=== PATIENT | female | born 1955 | race Caucasian/White ===

== ENCOUNTER 2020-07-23 11:10 | Inpatient (IN) | payer MEDICAID, SELFPAY ==
[~2020-07-23] VITALS: Ht 167.6 cm; Wt 125.6 kg
[2020-07-23] MEDS: LACTATED RINGERS 1,000 ML IV SCH ×2 (02:15→21:05)
[2020-07-23 11:33] VITALS: BP 176/102
--- NOTE | 2020-07-23 11:39 | NUR ---
PT C/O RLQ ADBOMINAL PAIN RADIATING TO RIGHT SUPRAPUBIC AREA FOR 4 DAYS WORSENS YESTERDAY. DENIES N/V, FEVER, DIARRHEA, DYSURIA. STATES DECREASED APPETITE. TRIED PEPTOBISMOL NO RELIEF. DENIES CP AT THIS TIME BUT REPORTS SHE HAD ONE EPISODE OF COUGH THIS MORNING THAT MADE HER CHEST HURT AND SOB. PT PRESENTS WITHOUT DIAPHORESIS OR RESPIRATORY DISTRESS. SKIN IS PINK/WARM/DRY; AAOX4 WITH EVEN AND STEADY GAIT; LUNGS CLEAR BL; HR EVEN AND REGULAR; PATIENT STATES PAIN OF 7/10 AT THIS TIME; VSS; PATIENT POSITIONED FOR COMFORT; HOB ELEVATED; BEDRAILS UP X1; BED DOWN. ER MD MADE AWARE OF PT STATUS.
[2020-07-23] MEDS ORDERED: NACL 0.9% 1,000 ML IV ONE ×2 (12:21→14:05)
[2020-07-23] MEDS ORDERED: KETOROLAC 30 MG/ML VIAL IVP ONE (12:25)
[2020-07-23] MEDS ORDERED: ONDANSETRON 4 MG/2 ML VIAL IVP ONE (12:25)
[2020-07-23] MEDS ORDERED: MORPHINE SULFATE 4 MG/ML SYR IVP ONE (12:25)
[2020-07-23 12:41] LABS: BASOPHILS # (AUTO) 0.1 K/uL (0.00-0.22); BASOPHILS % (AUTO) 0.8 % (0.0-2.0); EOSINOPHILS # (AUTO) 0.1 K/uL (0-0.4); EOSINOPHILS % (AUTO) 1.3 % (0.0-4.0); HEMATOCRIT 35.8 % (36-48); HEMOGLOBIN 11.3 g/dL (12.0-16.0); LYMPHOCYTES # (AUTO) 2.6 K/uL (2.5-16.5); LYMPHOCYTES % (AUTO) 25.8 % (20.5-51.1); MEAN CORPUSCULAR HEMOGLOBIN 26 pg (27-31); MEAN CORPUSCULAR HGB CONC 32 g/dL (33-37); MONOCYTES # (AUTO) 1.3 K/uL (0.8-1.0); MONOCYTES % (AUTO) 13.2 % (1.7-9.3); NEUTROPHILS % (AUTO) 58.9 % (42.2-75.2); PLATELET COUNT (AUTO) 493 K/uL (140-450); RED BLOOD CELL COUNT(AUTO) 4.37 MIL/uL (4.20-5.40); RED CELL DISTRIBUTION WIDTH 15.6 % (11.6-13.7); WHITE BLOOD COUNT (AUTO) 10.2 K/uL (4.8-10.8)
--- NOTE | 2020-07-23 12:46 | NUR ---
PT HAS BEEN TAKING TO CT SCAN VIA ASSISTED BY CLOTHING MANAGER.
[2020-07-23 12:58] LABS: ALBUMIN 2.9 g/dL (3.4-5.0); ANION GAP 15.5 (8-16); CARBON DIOXIDE 26.3 mmol/L (21-32); POTASSIUM 3.8 mmol/L (3.5-5.1); TOTAL BILIRUBIN 0.5 mg/dL (0.0-1.0)
--- NOTE | 2020-07-23 13:00 | NUR ---
PT HAS BEEN TAKEN BACK FROM CT SCAN VIA WC.
[2020-07-23] MEDS ORDERED: metroNIDAZOLE 500 MG/NS PREMIX 100 ML IV ONE (14:05)
[2020-07-23] MEDS ORDERED: PIPERACILLIN/TAZOBACTAM 3.375 GM in DEXTROSE 5% 50 ML IV ONE (14:05)
[2020-07-23] MEDS ORDERED: LACTATED RINGERS 1,000 ML IV ONE (14:25)
[2020-07-23] MEDS ORDERED: NACL 0.9% 1,000 ML IV SCH (14:36)
[2020-07-23] MEDS ORDERED: LORazepam 2 MG/ML VIAL IM/IVP PRN (14:40)
[2020-07-23] MEDS ORDERED: POTASSIUM CHLORIDE 10 MEQ TABER PO PRN (14:40)
[2020-07-23] MEDS ORDERED: DOCUSATE SODIUM 100 MG GELCAP PO PRN (14:40)
[2020-07-23] MEDS ORDERED: DEXTROSE 50% 50 ML SYR IVP PRN (14:40)
[2020-07-23] MEDS ORDERED: MAG SULF 2000 MG/WATER PREMIX 50 ML IV PRN (14:40)
[2020-07-23] MEDS ORDERED: INSULIN LISPRO SLIDING SCALE 100 UNITS/ML VIAL SUBQ PRN (14:40)
[2020-07-23] MEDS ORDERED: ZOLPIDEM 5 MG TAB PO PRN (14:40)
[2020-07-23] MEDS ORDERED: ACETAMINOPHEN 325 MG TAB PO PRN (14:40)
--- NOTE | 2020-07-23 14:48 | NUR ---
WALKED BLOOD DRAW TO LAB
--- NOTE | 2020-07-23 14:56 | NUR ---
MIRLANDE COVID SWAB SENT TO LAB AT THIS TIME.
[2020-07-23] MEDS ORDERED: PIPERACILLIN/TAZOBACTAM 3.375 GM VIAL IV ONE ×2 (15:04→21:42)
--- NOTE | 2020-07-23 15:22 | NUR ---
XRAY IS AT BEDSIDE.
--- NOTE | 2020-07-23 15:23 | NUR ---
RAD AT BEDSIDE
--- NOTE | 2020-07-23 15:42 | NUR ---
DR. CRUMP AT BEDSIDE
[2020-07-23 15:46] LABS: PROTHROMBIN TIME 10.9 secs (10.8-13.4)
[2020-07-23] MEDS ORDERED: BUPIVACAINE-MPF/EPI 0.25% 30 ML VIAL INJ ONE (15:55)
--- NOTE | 2020-07-23 16:00 | NUR ---
PT HAS BEEN TAKING TO OR FOR SURGERY BY GAUTAM ROBLES FROM OR VIA [facility].
[2020-07-23] MEDS ORDERED: ONDANSETRON 4 MG/2 ML VIAL ONE (16:04)
[2020-07-23] MEDS ORDERED: fentaNYL citrate 0.05 MG/ML VIAL ONE (16:04)
[2020-07-23] MEDS ORDERED: DESFLURANE 240 ML BTL INH ONE (16:04)
[2020-07-23] MEDS ORDERED: KETOROLAC 30 MG/ML VIAL ONE (16:04)
[2020-07-23] MEDS ORDERED: DEXAMETHASONE 4 MG/ML VIAL ONE (16:04)
[2020-07-23] MEDS ORDERED: ROCURONIUM 50 MG/5 ML VIAL IV ONE (16:04)
[2020-07-23] MEDS ORDERED: PROPOFOL 200 MG/20 ML VIAL IV ONE (16:04)
[2020-07-23] MEDS ORDERED: HYDROmorphone 1 MG/ML AMP ONE (16:04)
[2020-07-23] MEDS ORDERED: SUCCINYLCHOLINE CHLORIDE 200 MG/10 ML VIAL IVP ONE (16:04)
[2020-07-23 16:07] LABS: CHOL/HDL RATIO 3.4 (1-4.5); MAGNESIUM 2.1 mg/dL (1.8-2.4); PHOSPHORUS 2.2 mg/dL (2.5-4.9); THYROID STIMULATING HORMONE 1.19 uIU/mL (0.34-3.74)
[2020-07-23] MEDS ORDERED: lisinopriL 20 MG TAB PO SCH (16:30)
[2020-07-23] MEDS ORDERED: HYDROmorphone 1 MG/ML AMP IVP PRN (16:35)
--- NOTE | 2020-07-23 19:50 | NUR ---
RECEIVED CONTINUITY OF CARE FROM GAUTAM SOW. PT WAS BROUGHT TO THE ROOM BY JONN. PT IS AROUSABLE TO NAME, EYES ARE ABLE TO TRACK, A/OX 2-4, DENIES PAIN AT THIS TIME. RESPIRATIONS EVEN AND UNLABORED, 02 SATURATION IS 84% AND 2L 02 WAS ADMINISTERED, OTHERWISE, VS IS WITHIN NORMAL LIMITS. NOTE 3 BANDAGES PM THE ABDOMEN, AN ABD PAD, AND EARL DRAIN WITH 40ML OF PINK DRAINAGE. DRESSINGS ARE DRY AND INTACT. ORIENTED PT TO ROOM, CALL LIGHT, AND STAFF. MRSA SCREEN COMPLETE. DISCUSSED POC WITH PT. INITIATE SAFETY PRECAUTIONS, CALL LIGHT WITH REACH. WILL CONTINUE TO MONITOR.
[2020-07-23 19:53] LABS: APPEARANCE,URINE SL CLOUDY (CLEAR); BILIRUBIN,URINE NEGATIVE (NEGATIVE); BLOOD, URINE NEGATIVE (NEGATIVE); COLOR,URINE YELLOW (YELLOW); LEUKOCYTE ESTERASE ,URINE NEGATIVE (NEGATIVE); NITRITE, URINE NEGATIVE (NEGATIVE); UGLUCOSE NEGATIVE (NEGATIVE)
[2020-07-23 20:04] LABS: BARBITURATE, URINE NEGATIVE ng/ml (NEG <=200); BENZODIAZEPINE, URINE NEGATIVE ng/mL (NEG <=200); CANNABINOID, URINE NEGATIVE ng/mL (NEG <=50); COCAINE, URINE NEGATIVE ng/mL (NEG <=300); OPIATE, URINE NEGATIVE ng/mL (NEG <=2000); PHENCYCLIDINE SCREEN,URINE NEGATIVE ng/mL (NEG <=25)
[2020-07-23] MEDS: BLOOD GLUCOSE MONITORING 1 DEV DEV FS SCH (21:00)
--- NOTE | 2020-07-23 21:25 | NUR ---
ADMINISTERED SCHEDULED MEDICATION. EDUCATION WAS GIVEN. ASSESSED FSBS AND RECEIVED 164. NO COVERAGE WAS GIVEN DUE TO PATIENT NPO S/P SURGERY.
[2020-07-23] MEDS: PIPERACILLIN/TAZOBACTAM 3.375 GM in DEXTROSE 5% 50 ML IV SCH (21:59)
[2020-07-23] MEDS: ONDANSETRON 4 MG/2 ML VIAL IM/IVP PRN (21:59)
--- NOTE | 2020-07-23 23:15 | NUR ---
PT IS SLEEPING. NO SIGNS OF DISTRESS NOTED.
[2020-07-24] VITALS: BP 142/78
[2020-07-24] MEDS: metroNIDAZOLE 500 MG/NS PREMIX 100 ML IV SCH ×3 (00:41→16:13)
--- NOTE | 2020-07-24 01:23 | NUR ---
PT IS SLEEPING. VISIBLE CHEST RISE NOTED.
--- NOTE | 2020-07-24 03:02 | NUR ---
PT IS SLEEPING. VISIBLE CHEST RISE NOTED.
[2020-07-24] MEDS: MORPHINE SULFATE 2 MG/ML SYR IVP PRN ×4 (03:53→21:57)
[2020-07-24 04:00] VITALS: BP 142/78
--- NOTE | 2020-07-24 04:10 | NUR ---
PT CALLED FOR BEDPAN. CHUTE MAN AT BEDSIDE TO CLEAN PT. PT REPORTED PAIN 8/10. MEDICATED AT ORDERED. PT QUESTIONS ABOUT 02 AND EDUCATION WAS GIVEN. PT VERBALIZED UNDERSTANDING. IN STABLE CONDITION. WILL CONTINUE TO MONITOR.
[2020-07-24] MEDS ORDERED: PIPERACILLIN/TAZOBACTAM 3.375 GM VIAL IV ONE ×2 (05:08→21:50)
[2020-07-24] MEDS: PIPERACILLIN/TAZOBACTAM 3.375 GM in DEXTROSE 5% 50 ML IV SCH ×3 (05:28→21:56)
[2020-07-24 06:01] LABS: BASOPHILS # (AUTO) 0.1 K/uL (0.00-0.22); BASOPHILS % (AUTO) 0.7 % (0.0-2.0); HEMATOCRIT 34.7 % (36-48); HEMOGLOBIN 10.6 g/dL (12.0-16.0); LYMPHOCYTES # (AUTO) 1.3 K/uL (2.5-16.5); MEAN CORPUSCULAR HEMOGLOBIN 25 pg (27-31); MEAN CORPUSCULAR HGB CONC 31 g/dL (33-37); MEAN CORPUSCULAR VOLUME 81.7 fL (80-94); MONOCYTES # (AUTO) 1.1 K/uL (0.8-1.0); MONOCYTES % (AUTO) 6.5 % (1.7-9.3); NEUTROPHILS # (AUTO) 14.2 K/uL (1.8-7.7); NEUTROPHILS % (AUTO) 84.8 % (42.2-75.2); PLATELET COUNT (AUTO) 493 K/uL (140-450); RED BLOOD CELL COUNT(AUTO) 4.24 MIL/uL (4.20-5.40); RED CELL DISTRIBUTION WIDTH 15.7 % (11.6-13.7); WHITE BLOOD COUNT (AUTO) 16.7 K/uL (4.8-10.8)
[2020-07-24] MEDS: LACTATED RINGERS 1,000 ML IV SCH ×2 (06:04→18:18)
[2020-07-24 06:31] LABS: ANION GAP 12.9 (8-16); CARBON DIOXIDE 24.9 mmol/L (21-32); CREATININE 0.9 mg/dL (0.6-1.3); POTASSIUM 3.8 mmol/L (3.5-5.1)
[2020-07-24] MEDS: BLOOD GLUCOSE MONITORING 1 DEV DEV FS SCH ×4 (06:38→21:56)
--- NOTE | 2020-07-24 06:39 | NUR ---
FSBS IS 159, NO COVERAGE GIVEN DUE TO PATIENT HAVING BEEN NPO. PT IS IN STABLE CONDITION. WILL CONTINUE TO MONITOR.
[2020-07-24 06:50] LABS: MAGNESIUM 1.9 mg/dL (1.8-2.4); PHOSPHORUS 2.3 mg/dL (2.5-4.9)
--- NOTE | 2020-07-24 07:43 | NUR ---
ENDORSED CARE TO AM NURSE. PT IN STABLE CONDITION.
--- NOTE | 2020-07-24 07:48 | NUR ---
RECEIVED BEDSIDE REPORT FROM NIGHTSHIFT NURSE. PT RESTING IN BED. ABLE TO MAKE NEEDS KNOWN. RESPIRATIONS EVEN AND UNLABORED WITH NO SOB OR RESPIRATORY DISTRESS. IV SITE IN R WRIST 22G IS CLEAN, DRY, AND INTACT. SAFETY MEASURES IN PLACE. WILL CONTINUE TO MONITOR
[2020-07-24 08:00] VITALS: BP 139/56
[2020-07-24] MEDS: ONDANSETRON 4 MG/2 ML VIAL IVP PRN ×2 (09:00→13:21)
[2020-07-24] MEDS: lisinopriL 20 MG TAB PO SCH (09:05)
--- NOTE | 2020-07-24 09:13 | NUR ---
PATIENT HAS BEEN SCREENED AND CATEGORIZED MODERATE NUTRITION RISK. PATIENT WILL BE SEEN WITHIN 3-5 DAYS OF ADMISSION. 07/26/20 07/28/[address]
--- NOTE | 2020-07-24 09:21 | NUR ---
PT COMPLAINED OF SEVERE PAIN MEDICATION ADMINISTERED PRESCRIBED PER MD ORDER. ADMINISTERED SCHED MED PRESCRIBED PER MD ORDER. PT TOLERATED WELL. MEDICATION EDUCATION PERFORMED. PT VERBALIZED UNDERSTANDING. SAFETY MEASURES IN PLACE. WILL CONTINUE TO MONITOR
--- NOTE | 2020-07-24 11:30 | NUR ---
PT BLOOD SUGAR IS 139. NO INSULIN NEEDED AT THIS TIME. SAFETY MEASURES IN PLACE. WILL CONTINUE TO MONITOR
--- NOTE | 2020-07-24 11:52 | NUR ---
BARREL BANDER NOTE: Patient's Orientation Person Situation Place Time Information Provided By PATIENT Comments SW WAS UNABLE TO MEET PATIENT AT BEDSIDE. SW CONTACTED PATIENT THROUGH ROOM PHONE TO COMPLETE ASSESSMENT. Wood Milling Machine Operator, Realtionship and Phone Number HERNESTO MOYER [phone] [facility] Power of Supervisor Hand Silvering No Does Patient Have a POLST No Identifying Problems No Social Work Triggers Is A Social Work Consult Needed No Mandate Report Filed No Explanation Of Identifying Problems PATIENT IS A 64-YEAR-OLD FEMALE ADMITTED FOR APPENDICITIS. PATIENT HAS PMHX OF HTN AND PREDIABETES. Admitted From Home Pre-Admission Level Of Functioning Status Independent/Ambulatory Prior Resources/Services Used In Last 12 Months No Prior Resources Used Prior DME No Prior DME Used Living Situation Apartment Lives With Family Patient Had Caregiver No Home Support No Caregiver Issues Financial Issues No Known Financial Issue Referral To The Financial Counselor Needed No Factors/Needs No D/C Needs Identified Pt/Rep Participated In Discharge Plan Yes Patient/Family Agress With Discharge Plan Yes Discharge Plan Comments TENTATIVE DISCHARGE PLAN IS FOR PATIENT IS TO BE DISCHARGED HOME. DC Plan Status Initiated
[2020-07-24] MEDS ORDERED: bisacodyL 5 MG TABEC PO SCH (12:53)
--- NOTE | 2020-07-24 13:04 | NUR ---
PT RESTING IN BED. ABLE TO MAKE NEEDS KNOWN. RESPIRATIONS EVEN AND UNLABORED WITH NO SOB OR RESPIRATORY DISTRESS. SAFETY MEASURES IN PLACE. WILL CONTINUE TO MONITOR
[2020-07-24] MEDS: BENZOCAINE/MENTHOL 1 LOZ MM PRN (13:21)
--- NOTE | 2020-07-24 15:27 | NUR ---
DISCHARGE PLANNING: THIS IS A 64 Y/O FEMALE PATIENT FROM HOME, WHO CAME IN DUE RLQ PAIN WITH DECREASED APPETITE, BLOATING AND CONSTIPATION. PAST MEDICAL HISTORY INCLUDE HTN, PRE DIABETES. INITIAL DIAGNOSIS APPENDICITIS. CURRENT LABS INCLUDE WBC 16.7, H/H 10.6/34.7, NA/K 141/3.8, BUN/CREA 4/0.9, LACTIC ACID 2.9-LATEST 1.0. BLOOD CS PENDING. ON ZOSYN. S/P EX LAP WITH EARL DRAIN 07/23/[address] CRUMP. DC PLAN BACK TO HOME ONCE STABLE. Addendum: 07/25/20 at 1203 by Isabel Leslie CM DC PEWTER FINISHER: RECEIVED ORDER FOR HOME O2 FAXED TO [facility] WILL FOLLOW UP. Addendum: 07/25/20 at 1207 by Isabel Leslie CM DC PEWTER FINISHER: SPOKE TO PATIENT REGARDING HOME O2 SHE IS WILLING TO PAY [employer] FOR HOME O2 IF IT IS NOT COVERED UNDER [facility] Addendum: 07/25/20 at 1241 by Isabel Leslie CM REMEDIOS CHUNGNER: FOLLOWED UP WITH LA AT [facility] HE IS GOING TO REACH OUT TO HIS [facility] COORDINATOR AND WILL FOLLOW UP WITH ME. Addendum: 07/25/20 at 0945 by Isabel Leslie CM DC PEWTER FINISHER: RECEIVED A CALL FROM JESSE AT [facility] HE SPOKE TO PATIENT REGARDING PAYING OUT OF POCKET HE STATED THAT PATIENT REFUSES TO PAY FOR THE OXYGEN. I SPOKE TO THE PATIENT MYSELF TO CLARIFY AND SHE IS REFUSING. NOTIFIED GAUTAM BATEMAN. Addendum: 07/25/20 at 1654 by Isabel Leslie CM REMEDIOS MATUTE: NOTIFIED DR. MCCRAY WELL THAT PATIENT IS REFUSING OXYGEN Addendum: 07/30/20 at 1218 by Yuliana Heard CM ON ROOM AIR, O2 SAT 97%. CURRENT LABS INCLUDE WBC 13.1, H/H 12.1/38.3, NA/K 138/3.7, BUN/CREA 5/0.8. ON [employer]. CT ABD/PELVIS SHOWED SUSPECTED PERFORATION OF ACUTE APPENDICITIS, WITH ADJACENT FLUID COLLECTION WHICH MAY REPRESENT PHLEGMON, ABSCESS OR OTHER COMPLEX FLUID. MINIMAL BILATERAL PLEURAL EFFUSIONS WITH BIBASILAR DEPENDENT ATELECTASIS. Addendum: 07/30/20 at 1324 by Yuliana Heard RECEIVED AN ORDER FOR HIGHER LEVEL OF TRANSFER TO [facility]. REFERRAL SENT. WILL FOLLOW UP. Addendum: 07/30/20 at 1342 by Yuliana Heard CONTACTED [facility] AT [phone], ABLE TO SPEAK TO BUDDY. PER BUDDY THEY ARE TIGHT RIGHT NOW. INFORMED HER THAT I SENT THE PACKET AND AND THE RESPONSE IS BUSY. I ASKED HER IF THEY HAVE OTHER FAX NUMBER TO SEND THE REFERRAL. SHE STATED JUST SEND IT AGAIN. RESENT TO THE SAME NUMBER. WILL FOLLOW UP. Addendum: 07/30/20 at 1420 by Yuliana Heard CM FAX STILL BUSY. PER KERA BAKER, SHE SPOKE TO JUTE BAG CUTTING MACHINE OPERATOR AT [facility] PROVIDING HER WITH ALTERNATE FAX NUMBER [phone]. CLINICALS SENT. WILL FOLLOW UP. Addendum: 07/30/20 at 1428 by Isabel Leslie CM REMEDIOS MATUTE: SET UP TRANSPORTATION ON WILL CALL WITH JERRY [phone] Addendum: 07/30/20 at 1522 by Yuliana Heard CM RECEIVED A CALL FROM BUDDY BLACK [facility] REQUESTING FOR THE COPY OF CT. INFORMED HER THAT I SENT IT AND IT WAS ON THE END PART OF THE PACKET. SHE STATED THEY DID NOT GET IT. INFORMED HER THAT I WILL SEND IT AGAIN. ALL IMAGING SENT. Addendum: 07/30/20 at 1626 by Yuliana Heard CM REACHED OUT TO [facility], ABLE TO SPEAK TO BUDDY. PER BUDDY THEY WILL ADMIT THE PATIENT PENDING BED. INFORMED HER TO CONTACT JUTE BAG CUTTING MACHINE OPERATOR AT [phone] AND THE UNIT AT [phone] ONCE BED IS AVAILABLE. CHARGE NURSE CASSY MADE AWARE.
--- NOTE | 2020-07-24 15:45 | NUR ---
HOURLY ROUNDING. PT RESTING IN BED. ABLE TO MAKE NEEDS KNOWN. RESPIRATIONS EVEN AND UNLABORED WITH NO SOB OR RESPIRATORY DISTRESS. SAFETY MEASURES IN PLACE. WILL CONTINUE TO MONITOR
[2020-07-24 16:00] VITALS: BP 146/74
--- NOTE | 2020-07-24 16:30 | NUR ---
PT BLOOD SUGAR IS 124. NO INSULIN NEEDED AT THIS TIME. SAFETY MEASURES IN PLACE. WILL CONTINUE TO MONITOR
--- NOTE | 2020-07-24 18:18 | NUR ---
ADMINISTERED SCHED MED PRESCRIBED PER MD ORDER. PT TOLERATED WELL. MEDICATION EDUCATION PERFORMED. PT VERBALIZED UNDERSTANDING. SAFETY MEASURES IN PLACE. WILL CONTINUE TO MONITOR
--- NOTE | 2020-07-24 19:26 | NUR ---
ENDORSED AT BEDSIDE TO NIGHTSHIFT NURSE FOR CONTINUITY OF CARE. PT IS STABLE
--- NOTE | 2020-07-24 19:30 | NUR ---
RECEIVED CONTINUITY OF CARE FROM AM NURSE. PT IS RESTING IN BED, A/OX4, BREATHING SPONTANEOUSLY WITH EVEN AND UNLABORED RESPIRATIONS. SURGICAL INCISIONS NOTED WITH CLEAN, DRY, AND INTACT BANDAGES. EARL DRAIN NOTED. PT IS ABLE TO MAKE NEEDS KNOWN. SAFETY PRECAUTIONS IN PLACE. CALL LIGHT WITHIN REACH. WILL CONTINUE TO MONITOR.
--- NOTE | 2020-07-24 21:44 | NUR ---
ADMINISTERED SCHEDULED MEDS. FSBS IS 129, NO COVERAGE NEEDED. PT IS IN STABLE CONDITION. WILL CONTINUE TO MONITOR.
[2020-07-24] MEDS ORDERED: ONDANSETRON 4 MG/2 ML VIAL ONE (21:49)
[2020-07-24] MEDS: ONDANSETRON 4 MG/2 ML VIAL IM/IVP PRN (21:57)
--- NOTE | 2020-07-24 23:15 | NUR ---
PT CALLED FOR MED FOR HER DRY MOUTH. MEDICATED ORDERED. HUNG SCHEDULED IV MED. EDUCATION WAS GIVEN.
[2020-07-25] VITALS: BP 163/91
[2020-07-25] MEDS: BENZOCAINE/MENTHOL 1 LOZ MM PRN (00:41)
--- NOTE | 2020-07-25 01:03 | NUR ---
PT IS SLEEPING. VISIBLE CHEST RISE NOTED.
--- NOTE | 2020-07-25 03:21 | NUR ---
PT IS SLEEPING. VISIBLE CHEST RISE NOTED.
[2020-07-25] MEDS: PIPERACILLIN/TAZOBACTAM 3.375 GM in DEXTROSE 5% 50 ML IV SCH ×2 (05:45→13:12)
[2020-07-25] MEDS: LACTATED RINGERS 1,000 ML IV SCH ×3 (05:45→18:17)
[2020-07-25] MEDS: HYDROcodone/APAP 5/325 MG 1 TAB TAB PO PRN (05:46)
[2020-07-25 05:54] LABS: BASOPHILS # (AUTO) 0.1 K/uL (0.00-0.22); BASOPHILS % (AUTO) 0.6 % (0.0-2.0); EOSINOPHILS # (AUTO) 0.1 K/uL (0-0.4); EOSINOPHILS % (AUTO) 1.1 % (0.0-4.0); HEMATOCRIT 33.7 % (36-48); HEMOGLOBIN 10.3 g/dL (12.0-16.0); LYMPHOCYTES # (AUTO) 2.5 K/uL (2.5-16.5); LYMPHOCYTES % (AUTO) 19.7 % (20.5-51.1); MEAN CORPUSCULAR HEMOGLOBIN 25 pg (27-31); MEAN CORPUSCULAR HGB CONC 31 g/dL (33-37); MEAN CORPUSCULAR VOLUME 82.1 fL (80-94); MONOCYTES # (AUTO) 1.4 K/uL (0.8-1.0); MONOCYTES % (AUTO) 10.8 % (1.7-9.3); NEUTROPHILS # (AUTO) 8.7 K/uL (1.8-7.7); NEUTROPHILS % (AUTO) 67.8 % (42.2-75.2); PLATELET COUNT (AUTO) 443 K/uL (140-450); RED CELL DISTRIBUTION WIDTH 15.8 % (11.6-13.7); WHITE BLOOD COUNT (AUTO) 12.8 K/uL (4.8-10.8)
[2020-07-25 06:36] LABS: MAGNESIUM 1.8 mg/dL (1.8-2.4); PHOSPHORUS 2.5 mg/dL (2.5-4.9)
[2020-07-25] MEDS: BLOOD GLUCOSE MONITORING 1 DEV DEV FS SCH ×4 (06:44→22:00)
[2020-07-25 07:12] LABS: ANION GAP 11.6 (8-16); CARBON DIOXIDE 25.9 mmol/L (21-32); POTASSIUM 3.5 mmol/L (3.5-5.1)
--- NOTE | 2020-07-25 07:40 | NUR ---
ENDORSED CARE TO AM NURSE. PT IN STABLE CONDITION.
--- NOTE | 2020-07-25 07:45 | NUR ---
RECEIVED BEDSIDE REPORT FROM NIGHTSHIFT NURSE. PT RESTING IN BED. ABLE TO MAKE NEEDS KNOWN. RESPIRATIONS EVEN AND UNLABORED WITH NO SOB OR RESPIRATORY DISTRESS. SKIN WARM AND DRY TO TOUCH. IV SITE IN R WRIST 22G IS CLEAN, DRY, AND INTACT. SAFETY MEASURES IN PLACE. WILL CONTINUE TO MONITOR
[2020-07-25 08:00] VITALS: BP 155/90
[2020-07-25] MEDS: metroNIDAZOLE 500 MG/NS PREMIX 100 ML IV SCH ×3 (08:00→16:23)
[2020-07-25] MEDS: lisinopriL 20 MG TAB PO SCH (09:00)
[2020-07-25] MEDS: ONDANSETRON 4 MG/2 ML VIAL IM/IVP PRN (10:06)
[2020-07-25] MEDS: MORPHINE SULFATE 2 MG/ML SYR IVP PRN ×2 (10:07→15:06)
--- NOTE | 2020-07-25 10:07 | NUR ---
PT CALLED AND COMPLAINED OF NAUSEA AND SEVERE PAIN. PRN ZOFRAN AND MORPHINE ADMINISTERED PRESCRIBED PER MD ORDER. ADMINISTERED SCHED MED PRESCRIBED PER MD ORDER. PT TOLERATED WELL. MEDICATION EDUCATION PERFORMED. PT VERBALIZED UNDERSTANDING. SAFETY MEASURES IN PLACE. WILL CONTINUE TO MONITOR
--- NOTE | 2020-07-25 11:00 | NUR ---
PATIENT REQUESTED TO DO TRIAL WITHOUT OXYGEN. REMOVED NASAL CANNULA FOR 15-20MIN AND PATIENT SPO2 SATURATION MAINTAINED BETWEEN 84-86% ON ROOM AIR. PT COMPLAINED OF SHORTNESS OF BREATH WITHOUT OXYGEN. PLACED PT BACK ON 2L VIA NC AND PATIENT WENT UP TO 94-95%. MD AWARE. SAFETY MEASURES IN PLACE. WILL CONTINUE TO MONITOR
--- NOTE | 2020-07-25 11:30 | NUR ---
PT BLOOD SUGAR IS 114. NO INSULIN NEEDED AT THIS TIME. SAFETY MEASURES IN PLACE. WILL CONTINUE TO MONITOR
[2020-07-25] MEDS ORDERED: amLODIPine 5 MG TAB PO SCH (12:25)
[2020-07-25] MEDS: GAUZE TP SCH ×2 (13:00→21:00)
--- NOTE | 2020-07-25 13:00 | NUR ---
DR. CRUMP GAVE VERBAL OVER THE PHONE ORDERS TO REMOVE DRESSING AND TO PROVIDE WOUND CARE. PROVIDED WOUND CARE PRESCRIBED PER MD ORDER. PT TOLERATED WELL. SAFETY MEASURES IN PLACE. WILL CONTINUE TO MONITOR
--- NOTE | 2020-07-25 13:15 | NUR ---
ADMINISTERED SCHED MED PRESCRIBED PER MD ORDER. PT TOLERATED WELL. MEDICATION EDUCATION PERFORMED. PT VERBALIZED UNDERSTANDING. SAFETY MEASURES IN PLACE. WILL CONTINUE TO MONITOR
--- NOTE | 2020-07-25 14:30 | NUR ---
PT RESTING IN BED. ABLE TO MAKE NEEDS KNOWN. RESPIRATIONS EVEN AND UNLABORED WITH NO SOB OR RESPIRATORY DISTRESS. SKIN WARM AND DRY TO TOUCH. SAFETY MEASURES IN PLACE. WILL CONTINUE TO MONITOR
--- NOTE | 2020-07-25 15:06 | NUR ---
PT COMPLAINED OF SEVERE PAIN. PRN MORPHINE ADMINISTERED PRESCRIBED PER MD ORDER. PT TOLERATED WELL. MEDICATION EDUCATION PERFORMED. PT VERBALIZED UNDERSTANDING. SAFETY MEASURES IN PLACE. WILL CONTINUE TO MONITOR
[2020-07-25 16:00] VITALS: BP 159/89
--- NOTE | 2020-07-25 16:30 | NUR ---
PT BLOOD SUGAR IS 129. NO INSULIN COVERAGE NEEDED AT THIS TIME. SAFETY MEASURES IN PLACE. WILL CONTINUE TO MONITOR
--- NOTE | 2020-07-25 17:15 | NUR ---
ADMINISTERED SCHED MED PRESCRIBED PER MD ORDER. PT TOLERATED WELL. MEDICATION EDUCATION PERFORMED. PT VERBALIZED UNDERSTANDING. SAFETY MEASURES IN PLACE. WILL CONTINUE TO MONITOR
--- NOTE | 2020-07-25 19:20 | NUR ---
RECEIVED PT AAOX4 , NID - O2 SAT WNL , W/ O2 AT 2LPM/NC . DENIES PAIN , W/ SURGICAL 3 INCISSION ON ABD. W/ 1 EARL DRAIN - INTACT NO SIGNS OF BLEEDING - SOFT ADB . IV SITE INTACT AND PATENT . SAFETY MEASURES IN PLACE . PLAN OF CARE DISCUSSED AND VERBALIZE UNDERSTANDING . WILL CONT. TO MONITOR .
--- NOTE | 2020-07-25 19:20 | NUR ---
ENDORSED TO NIGHTSHIFT FOR CONTINUITY OF CARE. PT IS STABLE
[2020-07-25] MEDS: MEROPENEM 1,000 MG in NACL 0.9% 100 ML IV SCH (22:50)
[2020-07-26] VITALS: BP 140/82
--- NOTE | 2020-07-26 | NUR ---
MADE ROUNDS . NO S/SX OF ACUTE DISTRESS NOTED AT THIS TIME .
--- NOTE | 2020-07-26 04:00 | NUR ---
MADE ROUNDS , NO COMPLAIN MADE .
[2020-07-26] MEDS: LACTATED RINGERS 1,000 ML IV SCH ×2 (05:06→11:39)
[2020-07-26 05:50] LABS: BASOPHILS % (AUTO) 0.4 % (0.0-2.0); EOSINOPHILS # (AUTO) 0.4 K/uL (0-0.4); EOSINOPHILS % (AUTO) 3.6 % (0.0-4.0); HEMATOCRIT 31.5 % (36-48); LYMPHOCYTES # (AUTO) 2.3 K/uL (2.5-16.5); LYMPHOCYTES % (AUTO) 23.6 % (20.5-51.1); MEAN CORPUSCULAR HEMOGLOBIN 26 pg (27-31); MEAN CORPUSCULAR HGB CONC 32 g/dL (33-37); MEAN CORPUSCULAR VOLUME 80.6 fL (80-94); MONOCYTES # (AUTO) 1.1 K/uL (0.8-1.0); MONOCYTES % (AUTO) 11.5 % (1.7-9.3); NEUTROPHILS % (AUTO) 60.9 % (42.2-75.2); PLATELET COUNT (AUTO) 450 K/uL (140-450); RED BLOOD CELL COUNT(AUTO) 3.91 MIL/uL (4.20-5.40); RED CELL DISTRIBUTION WIDTH 15.7 % (11.6-13.7); WHITE BLOOD COUNT (AUTO) 9.9 K/uL (4.8-10.8)
--- NOTE | 2020-07-26 06:00 | NUR ---
MADE ROUNDS , NO S/SSX OF ACUTE DISTRESS NOTED .
[2020-07-26 06:30] LABS: ANION GAP 7.1 (8-16); CARBON DIOXIDE 29.2 mmol/L (21-32); CREATININE 0.9 mg/dL (0.6-1.3); POTASSIUM 3.3 mmol/L (3.5-5.1)
[2020-07-26] MEDS: MEROPENEM 1,000 MG in NACL 0.9% 100 ML IV SCH ×3 (06:30→20:57)
[2020-07-26] MEDS: BLOOD GLUCOSE MONITORING 1 DEV DEV FS SCH ×4 (06:40→21:01)
[2020-07-26 06:41] LABS: MAGNESIUM 1.7 mg/dL (1.8-2.4); PHOSPHORUS 2.4 mg/dL (2.5-4.9)
--- NOTE | 2020-07-26 07:30 | NUR ---
ENDORSED TO AM SHIFT - PT - STABLE .
--- NOTE | 2020-07-26 07:30 | NUR ---
RECEIVED PATIENT FROM NIGHT NURSE. PATIENT IN BED AWAKE, ALERT, ORIENTED X4. RESP EVEN AND UNLABORED ON 2LNC. DENIES PAIN AT THIS TIME. PLAN OF CARE DISCUSSED WITH PATIENT, PATIENT VERBALIZED UNDERSTANDING. SAFETY MEASURES IN PLACE, CALL LIGHT WITHIN REACH. WILL CONTINUE TO MONITOR.
[2020-07-26 08:00] VITALS: BP 187/99
[2020-07-26] MEDS: lisinopriL 20 MG TAB PO SCH (09:12)
[2020-07-26] MEDS: GAUZE TP SCH ×2 (09:13→21:01)
--- NOTE | 2020-07-26 09:24 | NUR ---
MORNING ROUTINE MEDICATIONS GIVEN. PATIENT TOLERATED WELL. 3 INCISIONS WITH MARIZOL NOTED TO ABDOMEN, CLEAN AND INTACT, CLEAN WITH BETADINE AND LEAVE RAUL. EARL DRAIN NOTED AND COLLECTED 5ML. PATIENT AWAKE, AND ALERT ORIENTED X4. ABLE TO MAKE NEEDS KNOWN. DENIES OF ANY DISTRESS AT THIS TIME. CALL LIGHT WITHIN REACH. WILL CONTINUE TO MONITOR.
[2020-07-26] MEDS ORDERED: POTASSIUM CHLORIDE 20% 40 MEQ/15 ML UDC GT SCH (09:30)
[2020-07-26] MEDS: MORPHINE SULFATE 2 MG/ML SYR IVP PRN ×2 (12:34→18:27)
--- NOTE | 2020-07-26 12:45 | NUR ---
BLOOD SUGAR 107. NO COVERAGE REQUIRED. PATIENT C/O PAIN TO ABD. GIVEN MORPHINE PRN ORDERED. DR CRUMP AT BEDSIDE REMOVING EARL DRAIN, INCISION SITE COVERED BY DRY DRESSING 4X4 WITH TAPED. BP 175/[address] HYDE NOTIFIED. RESP EVEN AND UNLABORED ON 2L NC. PATIENT ABLE TO MAKE NEEDS KNOWN. CALL LIGHT WITHIN REACH. WILL CONTINUE TO MONITOR
[2020-07-26] MEDS ORDERED: hydrALAZINE 20 MG/ML VIAL IVP SCH ×2 (13:00→19:20)
--- NOTE | 2020-07-26 13:28 | NUR ---
HYDRALAZINE GIVEN ORDERED X 1 NOW FOR SBP >160. WILL REASSESS FOR EFFECTIVENESS. PATIENT DENIES PAIN OR DISCOMFORT AT THIS TIME. CALL LIGHT WITHIN REACH. WILL CONTINUE TO MONITOR.
[2020-07-26 13:46] LABS: ANION GAP 11.5 (8-16); CARBON DIOXIDE 28.4 mmol/L (21-32); CREATININE 0.9 mg/dL (0.6-1.3); POTASSIUM 3.9 mmol/L (3.5-5.1)
--- NOTE | 2020-07-26 14:44 | NUR ---
BP REASSESS TO 168/[address] HYDE MADE AWARE. RECEIVED ORDERS TO CHANGE IVF TO NS AT 20ML/HR. ORDER READ BACK AND CONFIRMED.
[2020-07-26] MEDS: NACL 0.9% 500 ML IV SCH (15:00)
[2020-07-26 16:00] VITALS: BP 167/82
--- NOTE | 2020-07-26 18:50 | NUR ---
BP ASSESS AT 189/[address] HYDE. RECEIVED TELEPHONE ORDER FOR AMLODIPINE 10MG PO X1 NOW, THEN AMLODIPINE 10MG PO QDAILY TOMORROW AT 0900, ALSO HYDRALAZINE 10MG IVP PRN X1 NOW FOR SBP >160. TELEPHONE ORDER READ BACK AND CONFIRMED. ORDER CARRIED OUT. PATIENT DENIES ANY DISTRESS AT THIS TIME. RESP EVEN AND UNLABORED ON ROOM AIR. WILL CONTINUE TO MONITOR.
[2020-07-26] MEDS ORDERED: amLODIPine 5 MG TAB PO SCH (19:20)
--- NOTE | 2020-07-26 19:25 | NUR ---
ENDORSED PATIENT TO NIGHT NURSE. PATIENT IN STABLE CONDITION.
--- NOTE | 2020-07-26 19:26 | NUR ---
RECEIVED BEDSIDE ENDORSEMENT FROM AM SHIFT RN. PATIENT IS AOX4, NO SOB, DENIES PAIN, WITH 3 ABD INCISIONS W/ MARIZOL, SENIOR PRINCIPAL PROCESS ENGINEER, WITHRT UPPER ABD DRY AND INTACT DRESSING NOTED DUE TO S/P REMOVAL OF EARL DRAIN. PLAN OF CARE DISCUSSED, SAFETY MEASURES IN PLACE, CALL LIGHT WITHIN REACH.
--- NOTE | 2020-07-26 21:00 | NUR ---
MEROPENEM GIVEN ORDERED, NO A/R NOTED.
[2020-07-26] MEDS ORDERED: METOPROLOL 5 MG/5 ML VIAL IVP ONE (21:15)
--- NOTE | 2020-07-26 21:21 | NUR ---
INFORMED DR. HYDE OF BP 180/86 HR 94, RECEIVED NEW ORDERS FOR LOPRESSOR X1 AND HYDRALAZINE PRN, NOTED AND CARRIED OUT.
[2020-07-26] MEDS ORDERED: METOPROLOL 5 MG/5 ML VIAL IV SCH ×2 (22:30→22:45)
[2020-07-27] VITALS: BP 165/88
[2020-07-27] MEDS: MEROPENEM 1,000 MG in NACL 0.9% 100 ML IV SCH ×3 (04:15→20:17)
--- NOTE | 2020-07-27 04:16 | NUR ---
MEROPENEM GIVEN ORDERED, NO A/R NOTED.
[2020-07-27 05:39] LABS: BASOPHILS % (AUTO) 0.4 % (0.0-2.0); EOSINOPHILS # (AUTO) 0.3 K/uL (0-0.4); EOSINOPHILS % (AUTO) 2.2 % (0.0-4.0); HEMATOCRIT 35.6 % (36-48); HEMOGLOBIN 11.1 g/dL (12.0-16.0); LYMPHOCYTES # (AUTO) 3.3 K/uL (2.5-16.5); LYMPHOCYTES % (AUTO) 27.6 % (20.5-51.1); MEAN CORPUSCULAR HEMOGLOBIN 26 pg (27-31); MEAN CORPUSCULAR HGB CONC 31 g/dL (33-37); MEAN CORPUSCULAR VOLUME 81.8 fL (80-94); MONOCYTES # (AUTO) 1.2 K/uL (0.8-1.0); MONOCYTES % (AUTO) 10.3 % (1.7-9.3); NEUTROPHILS # (AUTO) 7.1 K/uL (1.8-7.7); NEUTROPHILS % (AUTO) 59.5 % (42.2-75.2); PLATELET COUNT (AUTO) 539 K/uL (140-450); RED BLOOD CELL COUNT(AUTO) 4.36 MIL/uL (4.20-5.40); RED CELL DISTRIBUTION WIDTH 15.7 % (11.6-13.7)
--- NOTE | 2020-07-27 06:00 | NUR ---
ASSISTED IN USING BEDPAN. KEPT CLEAN, DRY AND COMFORTABLE.
[2020-07-27] MEDS: BLOOD GLUCOSE MONITORING 1 DEV DEV FS SCH ×4 (06:35→20:17)
[2020-07-27 06:36] LABS: MAGNESIUM 1.9 mg/dL (1.8-2.4); PHOSPHORUS 2.6 mg/dL (2.5-4.9)
[2020-07-27 06:50] LABS: ANION GAP 14.3 (8-16); CARBON DIOXIDE 28.3 mmol/L (21-32); CREATININE 0.9 mg/dL (0.6-1.3); POTASSIUM 3.6 mmol/L (3.5-5.1)
--- NOTE | 2020-07-27 07:30 | NUR ---
PATIENT IS IN STABLE CONDITION, NO DISTRESS NOTED, NO SOB, BEDSIDE ENDORSEMENT GIVEN TO AM SHIFT RN FOR CONTINUITY OF CARE.
--- NOTE | 2020-07-27 07:31 | NUR ---
RECEIVED REPORT FROM ANDROID ARCHITECT RN FOR CONTINUITY OF CARE. PATIENT RESTING IN BED, AAOX4. SKIN WARM AND DRY. IV SITE LEFT HAND 24G INFUSING NS 20CC/HR. ABDOMINAL INCISION NOTED. WILL PERFORM ASSESSMENT AND DRESSING CHANGE. NO ACUTE DISTRESS NOTED, SAFETY MEASURES IN PLACE, WILL CONTINUE TO MONITOR.
[2020-07-27 08:00] VITALS: BP 180/94
[2020-07-27] MEDS: amLODIPine 5 MG TAB PO SCH (09:08)
[2020-07-27] MEDS: lisinopriL 20 MG TAB PO SCH (09:09)
[2020-07-27] MEDS: ONDANSETRON 4 MG/2 ML VIAL IM/IVP PRN (09:12)
[2020-07-27] MEDS: GAUZE TP SCH ×2 (10:00→20:17)
--- NOTE | 2020-07-27 10:47 | NUR ---
ASSESSED THE SURGICAL SITE AND INCISION SITE, REMOVED THE OLD DRESSING WITH OLD EARL DRAIN SITE. WITH MINI,AL PINKISH DISCHARGE, NO INFECTION NOTED. SN CLEANSED WITH NS. PATTED DRY, COVERED WITH STERILE GAUZE, SECURES WITH TAPE. THE SURGICAL SITE AT MID ABDOMINAL SITE, MARIZOL IN PLACE, REPLENISHMENT BUYER, NO DRAINAGE NOTED, NO S/S OF INFECTION NOTED. SN CLEANSED WITH BETADINE, LEAVE OPEN TO AIR DRY. PATIENT TOLERATED THE PROCEDURE WELL. SAFETY MEASURES IN PLACE, WILL CONTINUE TO MONITOR.
[2020-07-27] MEDS: HYDROcodone/APAP 5/325 MG 1 TAB TAB PO PRN ×2 (10:56→21:07)
--- NOTE | 2020-07-27 10:56 | NUR ---
NORCO GIVEN FOR ABDOMINAL PAIN 04/25. EDUCATION PROVIDED, NON PHARMACOLOGICAL PAIN MANAGEMENT PROVIDED. PATIENT TOLERATED WELL. WILL CONTINUE TO MONITOR.
--- NOTE | 2020-07-27 11:24 | NUR ---
BLOOD GLUCOSE LEVEL 103, NO INSULIN COVERAGE NEEDED. SAFETY MEASURES IN PLACE, WILL CONTINUE TO MONITOR.
[2020-07-27] MEDS: hydrALAZINE 20 MG/ML VIAL IVP PRN (11:33)
--- NOTE | 2020-07-27 11:33 | NUR ---
PRN BP MED HYDRALAZINE 5MG=0.25ML ADMINISTERED VIA IVP FOR BP LEVEL 177/89. HR 89. EDUCATION PROVIDED, PATIENT TOLERATED WELL. WILL REASSESS LATER. SAFETY MEASURES IN PLACE, WILL CONTINUE TO MONITOR.
[2020-07-27] MEDS: NACL 0.9% 500 ML IV SCH (14:45)
[2020-07-27 16:00] VITALS: BP 179/87
--- NOTE | 2020-07-27 16:41 | NUR ---
BLOOD GLUCOSE LEVEL 97, NO INSULIN COVERAGE NEEDED. SAFETY MEASURES IN PLACE, WILL CONTINUE TO MONITOR.
--- NOTE | 2020-07-27 16:42 | NUR ---
07/27/20 RD INITIAL ASSESSMENT COMPLETED PLEASE REFER TO NUTRITION ASSESSMENT UNDER CARE ACTIVITY FOR ESTIMATED NUTRITIONAL NEEDS. 1. CONTINUE REGULAR DIET TOLERATED 2. ENCOURAGE PO INTAKE 3. RD TO FOLLOW-UP 3-5 DAYS, MODERATE RISK HESHAM HERRERA RD
--- NOTE | 2020-07-27 19:15 | NUR ---
RECEIVED PT AAOX4 , NO S/SX OF ACUTE DISTRESS NOTED , SURGICAL SITES INTACT - C/O PAIN - WILL MEDICATE . POC DISCUSSED AND VERBALIZED UNDERSTANDING . IV SITE INTACT AND PATENT . WILL CONT. TO MONITOR .
--- NOTE | 2020-07-27 19:15 | NUR ---
ENDORSED PATIENT TO SALES REPRESENTATIVE [employer] RN FOR CONTINUITY OF CARE.
[2020-07-28] VITALS: BP 155/89
--- NOTE | 2020-07-28 | NUR ---
MADE ROUNDS , SLEEPING.
--- NOTE | 2020-07-28 04:00 | NUR ---
MADE ROUNDS , NO S/SX OFACUTE DISTRESS NOTED .
[2020-07-28] MEDS: MEROPENEM 1,000 MG in NACL 0.9% 100 ML IV SCH ×3 (04:56→22:14)
[2020-07-28] MEDS: HYDROcodone/APAP 5/325 MG 1 TAB TAB PO PRN ×2 (05:15→21:59)
[2020-07-28 06:24] LABS: BASOPHILS # (AUTO) 0.1 K/uL (0.00-0.22); BASOPHILS % (AUTO) 0.5 % (0.0-2.0); EOSINOPHILS # (AUTO) 0.3 K/uL (0-0.4); EOSINOPHILS % (AUTO) 2.9 % (0.0-4.0); HEMATOCRIT 33.6 % (36-48); HEMOGLOBIN 10.7 g/dL (12.0-16.0); LYMPHOCYTES # (AUTO) 3.5 K/uL (2.5-16.5); LYMPHOCYTES % (AUTO) 31.8 % (20.5-51.1); MEAN CORPUSCULAR HEMOGLOBIN 26 pg (27-31); MEAN CORPUSCULAR HGB CONC 32 g/dL (33-37); MONOCYTES # (AUTO) 1.3 K/uL (0.8-1.0); MONOCYTES % (AUTO) 11.6 % (1.7-9.3); NEUTROPHILS # (AUTO) 5.8 K/uL (1.8-7.7); NEUTROPHILS % (AUTO) 53.2 % (42.2-75.2); PLATELET COUNT (AUTO) 497 K/uL (140-450); RED CELL DISTRIBUTION WIDTH 15.5 % (11.6-13.7); WHITE BLOOD COUNT (AUTO) 10.9 K/uL (4.8-10.8)
--- NOTE | 2020-07-28 06:30 | NUR ---
MADE ROUNDS , NO COMPLAIN MADE - BP RE CHECK- HIGH SYSTOLIC - WILL MEDICATE . WILL ENDORSE .
[2020-07-28 06:32] LABS: ANION GAP 8.7 (8-16); CREATININE 0.8 mg/dL (0.6-1.3); POTASSIUM 3.7 mmol/L (3.5-5.1)
[2020-07-28] MEDS: BLOOD GLUCOSE MONITORING 1 DEV DEV FS SCH ×4 (06:33→21:53)
[2020-07-28] MEDS: hydrALAZINE 20 MG/ML VIAL IVP PRN (06:35)
[2020-07-28 07:25] LABS: MAGNESIUM 1.8 mg/dL (1.8-2.4); PHOSPHORUS 2.9 mg/dL (2.5-4.9)
--- NOTE | 2020-07-28 07:29 | NUR ---
ENDORSED TO AM SHIFT - PT -STABLE .
--- NOTE | 2020-07-28 07:34 | NUR ---
RECEIVED PT FROM SOLAR SALES NURSE, PT IS AWAKE AND LYING ON THE BED WITH SAFETY AND FALL PRECAUTION IN PLACE PT HAS AN IV LINE NOTED ON THE LEFT HAND G. 24 WITH IVF NS INFUSING AT 20ML/HR, INTACT, PT IS ON ROOM AIR AND HAS TOLERABLE PAIN NOW, PT IS S/P LAPAROSCOPIC AND EXPLORE APPENDECTOMY WITH HORIZONTAL ABDOMINAL INCISION PRESENT, MARIZOL INTACT, NO SIGN OF DRAINAGE AND DISTRESS NOTED, WILL MONITOR PT.
[2020-07-28 08:00] VITALS: BP 140/74
[2020-07-28] MEDS: amLODIPine 5 MG TAB PO SCH (09:04)
--- NOTE | 2020-07-28 09:04 | NUR ---
PT WAS GIVEN THE SCHEDULED AM MEDICATIONS, BP IS 140/74, PULSE IS 88,TOLERATED AND WILL MONITOR PT.
[2020-07-28] MEDS: lisinopriL 20 MG TAB PO SCH (09:05)
[2020-07-28] MEDS: GAUZE TP SCH ×2 (09:05→21:53)
--- NOTE | 2020-07-28 11:19 | NUR ---
RECEIVED A CALL FROM DR. CRUMP AND MADE A TELEPHONE ORDER TO DO A CT OF ABDOMEN/PELVIS WITH ORAL AND IV CONTRAST, ORDER READ BACK AND VERIFIED AND WILL CARRY OUT ORDER..
--- NOTE | 2020-07-28 11:59 | NUR ---
BLOOD GLUCOSE CHECK DONE TO PT AND RESULT IS 105 AND NO INSULIN COVERAGE NEEDED.
--- NOTE | 2020-07-28 13:02 | NUR ---
PT WAS GIVEN MEDICATION IVPB, WILL MONITOR PT.
--- NOTE | 2020-07-28 13:39 | NUR ---
Midline Nurse aware.
[2020-07-28] MEDS: NACL 0.9% 500 ML IV SCH (14:45)
[2020-07-28 16:00] VITALS: BP 158/83
--- NOTE | 2020-07-28 16:50 | NUR ---
DR. CRUMP CAME AND SPOKE TO PT AND CANCELLED THE CT ABDOMEN/PELVIS WITH ORAL AND IV CONTRAST TO BE DONE TO PT AND MADE AN ORDER TO GIVE PT DULCOLAX 10MGPO X 1 DOSE NOW.
[2020-07-28] MEDS ORDERED: bisacodyL 5 MG TABEC PO ONE (17:00)
--- NOTE | 2020-07-28 17:08 | NUR ---
BLOOD GLUCOSE CHECK DONE NOW TO PT AND IS 102.
[2020-07-28] MEDS ORDERED: bisacodyL 5 MG TABEC ONE (18:53)
--- NOTE | 2020-07-28 18:56 | NUR ---
PT WAS GIVEN DULCOLAX ORAL TABLETS NOW.
--- NOTE | 2020-07-28 19:15 | NUR ---
ENDORSED PT TO FOREST RANGER NURSE FOR CONTINUITY OF CARE.
--- NOTE | 2020-07-28 21:53 | NUR ---
SNACK FOR THE NIGHT GIVEN. ATE 100%.
--- NOTE | 2020-07-28 22:00 | NUR ---
REVIEWED AND DISCUSSED CARE PLAN WITH BRIDGET ARROYO LVN.
--- NOTE | 2020-07-28 22:30 | NUR ---
UNABLE TO HAVE BM FOR THREE DAYS NOW, PRUNE JUICE GIVEN. ENCOURAGED TO AMBULATE MORE.
[2020-07-29] VITALS: BP 154/80
--- NOTE | 2020-07-29 01:30 | NUR ---
SLEEPING COMFORTABLY IN BED.
--- NOTE | 2020-07-29 03:30 | NUR ---
ASSISTED FOR THE SECOND TIME TO USE THE BEDPAN. CLEANSED AND MADE COMFORTABLE IN BED.
[2020-07-29] MEDS: MEROPENEM 1,000 MG in NACL 0.9% 100 ML IV SCH ×3 (05:20→22:16)
[2020-07-29 06:05] LABS: BASOPHILS % (AUTO) 0.4 % (0.0-2.0); EOSINOPHILS # (AUTO) 0.2 K/uL (0-0.4); EOSINOPHILS % (AUTO) 1.8 % (0.0-4.0); HEMATOCRIT 38.3 % (36-48); HEMOGLOBIN 12.1 g/dL (12.0-16.0); LYMPHOCYTES # (AUTO) 4.1 K/uL (2.5-16.5); LYMPHOCYTES % (AUTO) 31.6 % (20.5-51.1); MEAN CORPUSCULAR HEMOGLOBIN 26 pg (27-31); MEAN CORPUSCULAR HGB CONC 32 g/dL (33-37); MEAN CORPUSCULAR VOLUME 81.3 fL (80-94); MONOCYTES # (AUTO) 1.3 K/uL (0.8-1.0); MONOCYTES % (AUTO) 10.2 % (1.7-9.3); NEUTROPHILS # (AUTO) 7.4 K/uL (1.8-7.7); PLATELET COUNT (AUTO) 617 K/uL (140-450); RED BLOOD CELL COUNT(AUTO) 4.71 MIL/uL (4.20-5.40); RED CELL DISTRIBUTION WIDTH 15.9 % (11.6-13.7); WHITE BLOOD COUNT (AUTO) 13.1 K/uL (4.8-10.8)
[2020-07-29 06:06] LABS: ANION GAP 7.9 (8-16); CARBON DIOXIDE 31.8 mmol/L (21-32); CREATININE 0.8 mg/dL (0.6-1.3); POTASSIUM 3.7 mmol/L (3.5-5.1)
--- NOTE | 2020-07-29 06:30 | NUR ---
NO BM YET, DRINKS ONE PRUNE JUICE. WHEN ASKED TO AMBULATE MORE, STATED THAT SHE CANNOT DO IT BECAUSE IT IS VERY PAINFUL.
--- NOTE | 2020-07-29 07:00 | NUR ---
CONDITION REMAIN STABLE. ABLE TO SLEEP WELL. WILL ENDORSE TO AM SHIFT NURSE FOR CONTINUITY OF CARE.
--- NOTE | 2020-07-29 07:15 | NUR ---
RECEIVED PT FROM JANITORIAL MAINTENANCE WORKER NURSE, PT IS AWAKE AND LYING ON THE BED WITH SAFETY AND FALL PRECAUTION IN PLACE PT HAS AN IV LINE NOTED ON THE LEFT HAND G. 24 WITH IVF NS INFUSING AT 20ML/HR, INTACT, PT IS ON ROOM AIR AND HAS TOLERABLE PAIN NOW, PT IS S/P LAPAROSCOPIC AND EXPLORE APPENDECTOMY WITH HORIZONTAL ABDOMINAL INCISION PRESENT, MARIZOL INTACT, NO SIGN OF DRAINAGE AND DISTRESS NOTED, WILL MONITOR PT.
[2020-07-29] MEDS: BLOOD GLUCOSE MONITORING 1 DEV DEV FS SCH ×4 (07:18→20:23)
[2020-07-29 08:00] VITALS: BP 150/82
--- NOTE | 2020-07-29 09:00 | NUR ---
PT WAS CLEANED AND ASSISTED TO BE COMFORTABLE ON THE BED, PT HAS A SMALL SOFT BOWEL MOVEMENT NOW VIA BEDPAN.
[2020-07-29] MEDS: ONDANSETRON 4 MG/2 ML VIAL IM/IVP PRN (09:46)
--- NOTE | 2020-07-29 09:46 | NUR ---
PT WAS GIVEN THE SCHEDULED AM MEDICATIONS, BP IS 150/82, PULSE IS 84 MANUALLY CHECKED,, O2 SATURATION 95%, TOLERATED,. WILL MONITOR PT.
[2020-07-29] MEDS: lisinopriL 20 MG TAB PO SCH (09:47)
[2020-07-29] MEDS: amLODIPine 5 MG TAB PO SCH (09:47)
--- NOTE | 2020-07-29 09:47 | NUR ---
PT WAS FEELING NAUSEATED AND ZOFRAN WAS GIVEN.
[2020-07-29] MEDS: GAUZE TP SCH ×2 (09:48→21:00)
[2020-07-29] MEDS: METOPROLOL SUCCINATE 50 MG TABER PO SCH (09:48)
--- NOTE | 2020-07-29 10:00 | NUR ---
PT WAS GIVEN TEACHINGS REGARDING AMBULATING AND TOLERATED MOVEMENT AND ITS RISK AND BENEFIT FOR HERSELF, ESPECIALLY AFTER SURGERY, WAS ENCOURAGED TO SIT ON A CHAIR AND PT VERBALIZED THAT SHE WILL TRY LATER TODAY, BECAUSE SHE IS IN SO MUCH PAIN
--- NOTE | 2020-07-29 12:14 | NUR ---
BLOOD GLUCOSE CHECK DONE AND RESULT IS 125.
--- NOTE | 2020-07-29 12:59 | NUR ---
PT WAS GIVEN MERREM IVPB NOW, STABLE AND DENIES PAIN, WILL MONITOR PT.
--- NOTE | 2020-07-29 13:27 | NUR ---
SPOKE TO [place] FROM PICC LINE SERVICE. SAYDA PICC LINE-RN WILL CALL FOR ETA. RN ASSIGNED MADE AWARE.
[2020-07-29] MEDS: NACL 0.9% 500 ML IV SCH (14:55)
[2020-07-29 16:00] VITALS: BP 144/78
--- NOTE | 2020-07-29 16:30 | NUR ---
BLOOD GLUCOSE CHECK DONE TO PT AND RESULT IS 112.
--- NOTE | 2020-07-29 19:25 | NUR ---
ENDORSED PT TO VIDEO RECORDER MECHANIC NURSE FOR CONTINUITY OF CARE.
--- NOTE | 2020-07-29 19:26 | NUR ---
RESTING IN BE, AWAKE, A/OX4. RESPIRATION EVEN AND UNLABORED. IV OF NS AT 20 ML/HR INFUSING LEFT HAND G24. SURGICAL INCISION IN THE ABDOMEN WITH MARIZOL, OPEN TO AIR ALL DRY AND INTACT. ON BILATERAL SEQUENTIALS. WAITING FOR PICC LINE NURSE. PLAN OF CARE FOR THE SHIFT DISCUSSED. VERBALIZED UNDERSTANDING. DENIES PAIN 0/10.
--- NOTE | 2020-07-29 19:40 | NUR ---
PICC LINE NURSE SAYDA CAME AND STARTED TO PUT PICC LINE (MIDLINE) PER MD ORDER.
--- NOTE | 2020-07-29 20:00 | NUR ---
Patient's Plan of Care was discussed and reviewed with AUDIT SPECIALIST: BRIDGET ARROYO
--- NOTE | 2020-07-29 20:05 | NUR ---
PICC LINE INSERTION FINISHED, INFORMED RADIOLOGY. PATIENT UNDERSTAND THAT SHE IS NPO UNTIL AFTER CT OF ABD AND PELVIS WITH CONTRAST IS DONE.
--- NOTE | 2020-07-29 22:00 | NUR ---
SUPERVISOR BEET END WILL NOT DO ABD/PELVIS CT UNLESS CONSENT IS SIGN BY MD.
[2020-07-30] VITALS: BP 106/65
--- NOTE | 2020-07-30 | NUR ---
SLEEPING COMFORTABLY IN BED.
--- NOTE | 2020-07-30 02:30 | NUR ---
ASSISTED WITH BEDPAN TO VOID. ADVISED TO AMBULATE AND ALTERNATELY TURN TO SIDES IN BED.
--- NOTE | 2020-07-30 06:00 | NUR ---
INFORMED DR. CHONG CT OF ABD/PELVIS NOT DONE LAST NIGHT, WILL BE DONE TODAY AFTER CONSENT SIGN BY MD. ON DUTY WILL COME TO THE FLOOR AT 0730.
[2020-07-30] MEDS: MEROPENEM 1,000 MG in NACL 0.9% 100 ML IV SCH ×2 (06:47→13:07)
--- NOTE | 2020-07-30 07:00 | NUR ---
RESTING IN BED, NPO FOR CT OF ABD/PELVIS. NO COMPLAINT OF PAIN. WILL ENDORSE TO AM SHIFT NURSE FOR CONTINUITY OF CARE.
--- NOTE | 2020-07-30 07:05 | NUR ---
RECEIVED REPORT FROM NIGHT NURSE PT IS AWAKE AND LYING IN BED, PT IS ON NPO FOR CT OF THE ABDOMEN AND PELVIS.IV SITES INTACT AND PATENT ON THE RIGHT HAND AND RIGHT UPPER ARM MIDLINE DOUBLE LUMEN. SAFETY MEASURES IN PLACE AND CALL LIGHT WITHIN REACH. WILL CONTINUE TO MONITOR.
[2020-07-30] MEDS: BLOOD GLUCOSE MONITORING 1 DEV DEV FS SCH ×3 (07:41→16:24)
[2020-07-30 08:00] VITALS: BP 150/77
[2020-07-30] MEDS: GAUZE TP SCH (09:00)
--- NOTE | 2020-07-30 09:30 | NUR ---
PT HAD A PHYSICAL THERAPY TODAY AND WAS ABLE TO WALK. PT COMPLAINS OF PAIN ON THE ABDOMEN WHILE WALKING.
[2020-07-30] MEDS: amLODIPine 5 MG TAB PO SCH (10:00)
--- NOTE | 2020-07-30 10:00 | NUR ---
MEDICATIONS DUE GIVEN AND CHECK VITAL SIGNS PRIOR TO MEDICATION. BP 155/82 ND 80. PATIENT IS AWAKE AND ALERT AND NO DISTRESS NOTED, VERBALIZES MILD PAIN IN THE ABDOMEN BUT TOLERABLE. SAFETY MEASURES IN PLACE AND CALL LIGHT WITHIN REACH.WILL CONTINUE TO MONITOR.
[2020-07-30] MEDS: lisinopriL 20 MG TAB PO SCH (10:01)
[2020-07-30] MEDS: METOPROLOL SUCCINATE 50 MG TABER PO SCH (10:01)
--- NOTE | 2020-07-30 10:50 | NUR ---
PT IS OUT IN HER ROOM AT THIS TIME. PT WENT FOR A CT OF THE ABDOMEN/PELVIS WITH CONTRAST. ESCORTED PATIENT TO RADIOLOGY DEPARTMENT. PT IS STABLE AND ABLE TO STAND UP.
--- NOTE | 2020-07-30 11:10 | NUR ---
PATIENT BACK IN HER ROOM, ASSISTED TO BED AND ABLE TO TOLERATE THE PROCEDURE AT THIS TIME.
--- NOTE | 2020-07-30 11:30 | NUR ---
BLOOD SUGAR MONITORING DONE AT THIS TIME. BLOOD SUGAR LEVEL AT 94MG/DL. NO INSULIN COVERAGE.
--- NOTE | 2020-07-30 12:50 | NUR ---
DR AHMADI WAS HERE TO CHECKED ON THE PATIENT AND ORDERED FOR CBC AND BNP DAILY FOR 3 DAYS AND INFORMED PATIENT FOR HER TRANSFER TO [facility] UNDER THE CARE OF DR MUELLER'S FOR AN URGENT APPENDECTOMY.
[2020-07-30 13:33] LABS: BASOPHILS # (AUTO) 0.1 K/uL (0.00-0.22); BASOPHILS % (AUTO) 0.8 % (0.0-2.0); EOSINOPHILS # (AUTO) 0.2 K/uL (0-0.4); HEMATOCRIT 37.2 % (36-48); HEMOGLOBIN 11.8 g/dL (12.0-16.0); LYMPHOCYTES % (AUTO) 26.5 % (20.5-51.1); MEAN CORPUSCULAR HEMOGLOBIN 26 pg (27-31); MEAN CORPUSCULAR HGB CONC 32 g/dL (33-37); MEAN CORPUSCULAR VOLUME 81.5 fL (80-94); MONOCYTES # (AUTO) 0.9 K/uL (0.8-1.0); MONOCYTES % (AUTO) 8.1 % (1.7-9.3); NEUTROPHILS # (AUTO) 7.1 K/uL (1.8-7.7); NEUTROPHILS % (AUTO) 62.6 % (42.2-75.2); PLATELET COUNT (AUTO) 589 K/uL (140-450); RED BLOOD CELL COUNT(AUTO) 4.56 MIL/uL (4.20-5.40); RED CELL DISTRIBUTION WIDTH 16.4 % (11.6-13.7); WHITE BLOOD COUNT (AUTO) 11.3 K/uL (4.8-10.8)
[2020-07-30] MEDS: HYDROcodone/APAP 5/325 MG 1 TAB TAB PO PRN (14:48)
[2020-07-30] MEDS: NACL 0.9% 500 ML IV SCH (14:56)
[2020-07-30 16:00] VITALS: BP 147/70
--- NOTE | 2020-07-30 16:00 | NUR ---
BLOOD SUGAR MONITORING DINE ON THE PATIENT WITH A LEVEL OF 96MG/DL NO INSULIN COVERAGE.
--- NOTE | 2020-07-30 17:00 | NUR ---
GAVE REPORT TO [facility] AT THIS TIME. TALKED TO THE CHARGE NURSE NSE RN AND GAVE REPORT ABOUT THE PATIENTS CONDITION. PTS ROOM NUMBER IS 491 B AND WAS INSTRUCTED TO GO DIRECTLY TO ER BEFORE GOING TO HER ROOM. PICKED UP IS AT 1830 TODAY.SAFETY MEASURES IN PLACE AND CALL LIGHT WITHIN REACH. WILL CONTINUE TO MONITOR.
--- NOTE | 2020-07-30 19:18 | NUR ---
ENDORSED PT TO NIGHT NURSE, PT IS READY AND WAITING FOR HER TRANSPORT FOR TRANSFER AT [facility]. GAVE REPORT TO CHARGE NURSE NSE AND AVAILABLE ROOM AT 491B.PT IS STABLE
== END 2020-07-30 21:10 | disposition short-term general hospital (02) | DRG 710 ==
LOC: MED 11:10 → MMU 14:40 → MTU 07-25 17:20 → MMU 07-28 20:00
PROC: 0W9G00Z Drainage of Peritoneal Cavity with Drainage Device, Open Approach (ICD-10-PCS; 2020-07-23)
PROC: 0WJG4ZZ Inspection of Peritoneal Cavity, Percutaneous Endoscopic Approach (ICD-10-PCS; principal; 2020-07-23 16:30)
DX: A41.9 Sepsis, unspecified organism (principal); K35.33 Acute appendicitis with perforation, localized peritonitis, and gangrene, with abscess; Z68.41 Body mass index [BMI] 40.0-44.9, adult; D35.01 Benign neoplasm of right adrenal gland; R73.03 Prediabetes; K76.0 Fatty (change of) liver, not elsewhere classified; K59.00 Constipation, unspecified; K57.30 Diverticulosis of large intestine without perforation or abscess without bleeding; E83.42 Hypomagnesemia; K44.9 Diaphragmatic hernia without obstruction or gangrene; D64.9 Anemia, unspecified; I10 Essential (primary) hypertension; K66.0 Peritoneal adhesions (postprocedural) (postinfection); Z20.828 Contact with and (suspected) exposure to other viral communicable diseases; E86.0 Dehydration; E66.01 Morbid (severe) obesity due to excess calories; Z98.51 Tubal ligation status; Z71.3 Dietary counseling and surveillance; Z82.49 Family history of ischemic heart disease and other diseases of the circulatory system; Z53.31 Laparoscopic surgical procedure converted to open procedure; E44.0 Moderate protein-calorie malnutrition
CPT/HCPCS: 36415; 71045; 80048; 80053; 80305; 81003; 82150; 82374; 82948; 83036; 83605; 83690; 83735; 83880; 84100; 84134; 84443; 85025; 85610; 85730; 86886; 86900; 86901; 87040; 87081; 93005; 96361; 96365; 96375; 97110; 97116; 97161-GP; 97530; 99285; C1751; J0330; J0360; J1100; J1170; J1885; J2185; J2270; J2405; J2543; J2704; J3010; J3490; J7030; J7060; J7120; Q0092; Q9967